=== PATIENT | female | born 1980 | race Caucasian/White ===

== ENCOUNTER 2017-04-10 02:24 | Emergency (ER) | payer OTHER ==
[~2017-04-10] VITALS: Ht 165.1 cm; Wt 90.7 kg
--- NOTE | ~2017-04-10 | CT4 ---
[facility] A Service of [facility] RADIOLOGY TEXT RESULTS PATIENT: WIN ANAND LOCATION: SED : [birth year] UNIT #: [id number] AGE: [address]: Geronimo Diaz MD SEX: F ORDER DR: [id number] [address] [address] [id number] E MR#: [id number] Acc #: [id number] NAME: WIN ANAND : 1980 SEX: F STUDY DATE/TIME: 04/10/2017 4:12 UNIT: SED ROOM: STUDY DESCRIPTION: CT Abd and Pelv Wo Cont Attending Physician: Geronimo Diaz M.D. Ordering Physician: Geronimo Diaz M.D. Primary Care Physician: Connor Orozco M.D. MEDICAL IMAGING REPORT This report is preliminary unless electronic signature is present. EXAM CT abdomen and pelvis, noncontrast, kidney stone protocol, 04/10/2017. HISTORY 37-year-old female in the ED complaining of right flank pain beginning about 3 hours prior to arrival. TECHNIQUE CT examination of the abdomen and pelvis without oral or IV contrast using kidney stone protocol. This CT exam was performed with one or more of the following radiation dose reduction techniques: automatic exposure control, adjustment of mA and/or kV according to patient size, and iterative reconstruction. COMPARISON CT stone study, 07/15/2017. FINDINGS ABDOMEN FINDINGS: There is a 5 mm obstructing calculus in the right distal ureter at the mid-pelvis level causing mild right hydronephrosis. Both kidneys, both ureters, and the urinary bladder are otherwise negative. Liver, pancreas, and spleen are normal in size and appearance without contrast. No gallbladder distension or bile duct dilatation. Small bowel and colon are normal in caliber and appearance, as imaged. Normal appendix. Normal-caliber abdominal aorta. 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 PELVIS FINDINGS: Small physiologic ovary cysts. Uterus, urinary bladder, and rectum are within normal limits. No inguinal hernia. [facility] A Service of [facility] RADIOLOGY TEXT RESULTS PATIENT: WIN ANAND LOCATION: [facility] [place] : [birth year] UNIT #: [id number] AGE: [address]: Geronimo Diaz MD SEX: F ORDER DR: IMPRESSION 1. Obstructing 5 mm right distal ureter calculus at the pelvis level causing mild right hydronephrosis. 2. The remainder of the examination is negative. Normal appendix. Dictated by... Obed Stone M.D. THIS IS AN ELECTRONICALLY VERIFIED REPORT Obed Stone M.D. at 04/10/2017 9:53 PM CASIEW/jacob TD: 04/10/2017 10:05 JOB #: [id number] MEDICAL IMAGING REPORT Page 1 of 1
[~2017-04-10 02:24] MED LIST: EC-NAPROSYN500 MG PO; FLOMAX0.4 M1 PO; LEXAPRO PO; MOBIC PO; MOTRIN600 M2 PO; PERCOCET7.5 PO; SKELAXIN PO; ZOFRAN ODT4 MG/UDTAB SL
[2017-04-10 03:19] LABS: URINE SOURCE CLEAN CATCH
[2017-04-10 03:26] LABS: URINE APPEARANCE HAZY; URINE BILIRUBIN NEG (NEG); URINE BLOOD 3+ (NEG); URINE GLUCOSE NEG (NORM); URINE KETONE NEG (NEG); URINE LEUKOCYTE ESTERASE TRACE (NEG); URINE NITRATE NEG (NEG); URINE PROTEIN TRACE (NEG); URINE SPECIFIC GRAVITY 1.025 (1.003-1.035); URINE UROBILINOGEN 0.2 MG/DL (NORM)
[2017-04-10 03:29] LABS: BASOPHIL# 0.2 X10e3 (0-0.3); EOSINOPHIL# 0.1 X10e3 (0-0.7); EOSINOPHIL% 1.1 % (0.0-7.0); HEMATOCRIT 37.5 % (35.0-45.0); HEMOGLOBIN 12.1 gm/dL (12.0-16.0); LYMPHOCYTE# 2.6 X10e3 (1.0-3.5); LYMPHOCYTE% 28.1 % (17.0-45.0); MEAN CORPUSCULAR HEMOGLOBIN 26.9 PG (28-34); MEAN CORPUSCULAR HGB CONC 32.4 g/dL (30-36); MEAN PLATELET VOLUME 10.1 FL (6.5-11.5); MONOCYTE# 0.7 X10e3 (0-1.0); MONOCYTE% 7.7 % (3.0-12.0); NEUTROPHIL# 5.6 X10e3 (1.5-7.1); NEUTROPHIL% 61.1 % (40-75); PLATELET COUNT 234 X10e3 (140-420); RED BLOOD COUNT 4.52 X10e (3.90-5.30); RED CELL DISTRIBUTION WIDTH 14.5 % (11.0-15.5); WHITE BLOOD COUNT 9.2 X10e3 (4.0-10.5)
[2017-04-10 03:31] LABS: DIFF IND NO
[2017-04-10 03:32] LABS: URINE COLOR RED
[2017-04-10 03:33] LABS: MICRO INDICATED? YES
[2017-04-10 03:35] LABS: BUN/CREATININE RATIO 12.72; CALCIUM SERUM 9.3 mg/dL (8.4-10.2); CREATININE SERUM 1.1 mg/dL (0.6-1.4); CULTURE INDICATED? NO; GLOM FILT RATE Estimated 64.1 mL/min (>60); POTASSIUM 3.8 mmol/L (3.5-5.1); URINE BACTERIA NEG (NEG); URINE RBC 200-300 /[HPF] (0-2); URINE SQUAMOUS EPITHELIAL CELL OCCAS /[HPF]; URINE TRANSITIONAL EPI CELLS FEW /[HPF]
== END 2017-04-10 05:05 | disposition home or self-care (01) ==
LOC: SED 02:24
PROVIDERS: Emergency Medicine
DX: N13.2 Hydronephrosis with renal and ureteral calculous obstruction (principal)
CPT/HCPCS: 36415; 74176; 80048; 81003; 84703; 85025; 96361; 96374; 96375; 96376; 99284; J1170; J1885; J2405